=== PATIENT | male | born 1995 | race Caucasian/White ===

== ENCOUNTER 2018-12-19 21:32 | Emergency (ER) | payer OTHER ==
[~2018-12-19] VITALS: Ht 182.9 cm; Wt 83.0 kg
[~2018-12-19 21:32] MED LIST: FLEXERIL PO; IBUPROFEN 600600 M1 PO; IBUPROFEN 800800 MG PO; NOHOMEMEDICATIONS; NORCO 5-325 TA1 EACH PO; VICODIN; ZANTAC 150MG T150 M1 PO
[2018-12-20] MEDS ORDERED: NORCO 5-325 TA1 EAC1 PO (00:45)
[2018-12-20 00:53] VITALS: BP 126/80
== END 2018-12-20 00:58 | disposition home or self-care (01) ==
LOC: M.ERS 21:32
DX: S20.212A Contusion of left front wall of thorax, initial encounter (principal); S69.82XA Other specified injuries of left wrist, hand and finger(s), initial encounter; V29.49XA Motorcycle driver injured in collision with other motor vehicles in traffic accident, initial encounter; Y93.I9 Activity, other involving external motion; Y92.89 Other specified places as the place of occurrence of the external cause; Y99.8 Other external cause status